=== PATIENT | male | born 1975 | race Caucasian/White ===

== ENCOUNTER 2017-01-24 11:12 | Emergency (ER) | payer OTHER ==
--- NOTE | 2017-01-24 11:16 | EDM.PDOC ---
ED HPI GENERAL MEDICAL PROBLEM - General Chief Complaint: Back Pain or Injury Stated Complaint: WC, BACK INJURY, [id number] Time Seen by Provider: 01/24/17 11:15 Source of Information: Reports: Patient, RN, RN notes reviewed History Limitations: Reports: No limitations - History of Present Illness INITIAL COMMENTS - FREE TEXT/NARRATIVE: Arrives from work by POV with c/o mid-back pain sustained this morning at work when he picked up a bag of trash and thru it in the dumpster. that radiates around the Rt lower ribs to the lower chest and upper Rt abdomen. Denies numbness, tingling, weakness, or loss of bowel or bladder control. Denies any prior history of back injury. The pain is described and an ache that becomes acutely sharp with flexing forward or rotating the torso. Pain is better at rest. Rates pain 7-8/10. Onset: sudden Onset Date: 01/24/17 Onset Time: 09:10 Duration: Constant Location: Reports: back Quality: Reports: Ache, Sharp Severity: severe Improves with: Reports: None Worsens with: Reports: Movement Context: Reports: Lifting. Denies: Activity, Exercise, Sick contact, Trauma Associated Symptoms: Reports: no other symptoms - Related Data Allergies Allergy/AdvReac Type Severity Reaction Status Date / Time metoprolol Allergy Indigestion Verified 12/29/14 10:40 Past Medical History Endocrine/Metabolic History: Reports: Obesity/BMI 30+ Social & Family History - Family History Family Medical History: Noncontributory - Tobacco Use Smoking Status *Q: Never Smoker - Recreational Drug Use Recreational Drug Use: No - Living Situation & Occupation Occupation: employed ED ROS GENERAL - Review of Systems Review Of Systems: ROS reveals no pertinent complaints other than HPI. ED EXAM,LOWER BACK PAIN/INJURY - Physical Exam Exam: See Below Exam Limited By: No limitations General Appearance: alert, WD/WN, no apparent distress Head: atraumatic, normocephalic Neck: normal inspection, full range of motion Respiratory/Chest: no respiratory distress, lungs clear, normal breath sounds, no accessory muscle use, chest non-tender Cardiovascular: regular rate, rhythm GI/Abdominal: Normal Bowel Sounds, Soft, Non-Tender, No Distention, Other ( benign obese abdomen) Back Exam: decreased range of motion (T/L spine junction), paraspinal tenderness (Rt lower thoracic). No: CVA tenderness (L), CVA tenderness (R), vertebral tenderness Extremities: normal inspection, normal range of motion, non-tender, no pedal edema, normal capillary refill Neurological: alert, normal mood/affect, normal dorsiflexion, CN II-XII intact, normal plantar flexion, normal gait, no motor/sensory deficits, oriented x 3 Psychiatric: normal affect, normal mood Skin Exam: Warm, Dry, Intact, Normal color, No rash Course - Orders/Labs/Meds Orders: Active Orders 24 hr Category Date Time Status Thoracolumbar 2V [CR] Urgent Exams 01/24/17 11:22 Ordered Departure - Departure Time of Disposition: 11:44 Disposition: Home, Self-Care 01 Condition: fair Clinical Impression: Acute thoracic back pain Qualifiers: Back pain laterality: right Qualified Code(s): M54.6 - Pain in thoracic spine - Discharge Information Instructions: Thoracic Strain, [id number] Forms: ED Department Discharge Additional Instructions: Light activity as tolerated. Rx: Cyclobenzaprine 10mg Rx: Naprosyn 500mg Follow up in clinic in 3 days for recheck. - My Orders Last 24 Hours: My Active Orders 01/24/17 11:22 Thoracolumbar 2V [CR] Urgent - Assessment/Plan Last 24 Hours: My Active Orders 01/24/17 11:22 Thoracolumbar 2V [CR] Urgent
[2017-01-24] MEDS ORDERED: Ketorolac 30 MG/ML SDV IM ONE (11:47)
[2017-01-24 12:19] VITALS: BP 159/81
--- NOTE | 2017-01-24 13:56 | CR ---
Clinical history: 41-year-old male with back pain at the thoracolumbar juncture. Interpretation: Chronic hypertrophic arthritis (marginal spondylosis involving, L1, L2, L3 and L4 v ertebral bodies (abnormal intervertebral disc space narrowing L2-3 level with endplate sclerosis and marginal spur formation). No sign of pathologic skeletal lesion or definite fracture/dislocation. Subtle relative decreased he ight of the T12 vertebral body could represent occult compression fracture and clinical? Posterior lower ribs unremarkable.
== END 2017-01-24 12:16 | disposition home or self-care (01) ==
LOC: DL.ED 11:12
DX: M54.6 Pain in thoracic spine (principal); E66.9 Obesity, unspecified
CPT/HCPCS: 72080; 99283

== ENCOUNTER 2020-08-08 18:02 | Emergency (ER) | payer OTHER ==
[2020-08-08] MEDS ORDERED: Acetaminophen/HYDROcodone 325-10 MG Tab PO ONE (18:03)
[2020-08-08 18:13] VITALS: BP 153/93; PULSE 98
--- NOTE | 2020-08-08 18:44 | CR ---
PROCEDURE INFORMATION: Exam: XR Right Knee Exam date and time: 08/08/2020 6:32 PM Age: 45 years old Clinical indication: Other: Pain; Additional info: Fell in a ronda hole/heard a crack TECHNIQUE: Imaging protocol: XR Right knee. Views: 3 views. COMPARISON: No relevant prior studies available. FINDINGS: Bones/joints: Tiny patellar spurs. No fracture dislocation. Soft tissues: Normal. IMPRESSION: No fracture
--- NOTE | 2020-08-08 18:53 | EDM.PDOC ---
ED HPI GENERAL MEDICAL PROBLEM - General Chief Complaint: Lower Extremity Injury/Pain Stated Complaint: STEPPED INTO HOLE, TWISTED LEG Time Seen by Provider: 08/08/20 18:52 Source of Information: Reports: Patient History Limitations: Reports: No Limitations - History of Present Illness INITIAL COMMENTS - FREE TEXT/NARRATIVE: stepped in hole and had to walk 2 miles back to truck. Right Knee Pain Score (Numeric/FACES): 7 - Related Data Allergies Allergy/AdvReac Type Severity Reaction Status Date / Time metoprolol Allergy Indigestion Verified 08/08/20 18:14 Home Meds: Home Meds . [No Known Home Meds] 08/08/20 [History] Past Medical History - Past Health History Medical/Surgical History: Denies Medical/Surgical History HEENT History: Reports: None Cardiovascular History: Reports: None Respiratory History: Reports: None Gastrointestinal History: Reports: None Genitourinary History: Reports: None Musculoskeletal History: Reports: None Neurological History: Reports: None Psychiatric History: Reports: None Endocrine/Metabolic History: Reports: Obesity/BMI 30+ Hematologic History: Reports: None Immunologic History: Reports: None Oncologic (Cancer) History: Reports: None Dermatologic History: Reports: None - Infectious Disease History Infectious Disease History: Reports: None - Past Surgical History Head Surgeries/Procedures: Reports: None Social & Family History - Family History Family Medical History: No Pertinent Family History - Tobacco Use Tobacco Use Status *Q: Never Tobacco User - Caffeine Use Caffeine Use: Reports: Soda - Alcohol Use Date of Last Drink: 08/08/20 Time of Last Drink: 16:00 - Recreational Drug Use Recreational Drug Use: No - Living Situation & Occupation Occupation: Employed Review of Systems - Review of Systems Review Of Systems: Comprehensive ROS is negative, except as noted in HPI. ED EXAM, GENERAL - Physical Exam Exam: See Below Exam Limited By: No Limitations General Appearance: Alert, WD/WN, Mild Distress, Other (disocmfort) Ears: Hearing Grossly Normal Throat/Mouth: Normal Voice, No Airway Compromise Head: Atraumatic Neck: Non-Tender, Full Range of Motion Respiratory/Chest: No Respiratory Distress Cardiovascular: Regular Rate, Rhythm GI/Abdominal: Soft, Non-Tender (Male) Exam: Deferred Rectal (Males) Exam: Deferred Extremities: Other (right knee swollen tender R/P, NV wnl, gai tlimited to pain) Neurological: Alert, Oriented, Normal Cognition, No Motor/Sensory Deficits Psychiatric: Normal Affect, Normal Mood Skin Exam: Warm, Dry, Normal Color Lymphatic: No Adenopathy Course - Vital Signs Last Recorded V/S: Last Vital Signs Temp 36.4 C 08/08/20 18:08 Pulse 98 08/08/20 18:08 Resp 18 08/08/20 18:08 BP 153/93 H 08/08/20 18:08 Pulse Ox 98 08/08/20 18:08 - Orders/Labs/Meds Meds: Medications Discontinued Medications Generic Name Dose Route Start Last Admin Trade Name Zia PRN Reason Stop Dose Admin Hydrocodone Bitart/Acetaminophen Confirm 08/08/20 19:02 [place] 325-10 Mg Administered 08/08/20 19:03 Dose 2 tab .ROUTE .STK-MED ONE - Re-Assessments/Exams Free Text/Narrative Re-Assessment/Exam: 08/08/20 19:02 results discussed with pt. Departure - Departure Time of Disposition: 19:02 Disposition: Home, Self-Care 01 Condition: Good Clinical Impression: Right knee sprain Qualifiers: Encounter type: initial encounter Involved ligament of knee: unspecified ligament Qualified Code(s): S83.91XA - Sprain of unspecified site of right knee, initial encounter - Discharge Information Instructions: Knee Sprain, Adult Forms: ED Department Discharge Additional Instructions: 1) elevate leg as much as possible next 3 days 2) follow up at clinic for possible MRI SCAN if not significantly better in 5 days rx togo; norco 10 x 2 Sepsis Event Note (ED) - Evaluation Sepsis Screening Result: No Definite Risk - Focused Exam Vital Signs: Vital Signs Temp Pulse Resp BP Pulse Ox 08/08/20 18:08 36.4 C 98 18 153/93 H 98
[2020-08-08] MEDS ORDERED: Acetaminophen/HYDROcodone 325-10 MG Tab ONE (19:02)
== END 2020-08-08 19:13 | disposition home or self-care (01) ==
LOC: DL.ED 18:02
DX: S83.91XA Sprain of unspecified site of right knee, initial encounter (principal); E66.9 Obesity, unspecified; Z68.37 Body mass index [BMI] 37.0-37.9, adult; Z88.8 Allergy status to other drugs, medicaments and biological substances; X50.1XXA Overexertion from prolonged static or awkward postures, initial encounter
CPT/HCPCS: 73562; 99283; A9270